=== PATIENT | female | born 1945 | race African-American/Black ===

== ENCOUNTER 2018-02-07 09:47 | Emergency (ER) | payer OTHER ==
[2018-02-07 10:00] VITALS: BP 173/93; PULSE 65; TEMP 98.4; BMI 34.3
[2018-02-07] MEDS ORDERED: IBUPROFEN 400 MG TABLET (FP) PO ONE ×2 (10:03→10:22)
--- NOTE | 2018-02-07 10:07 | PDOC ---
Attending Attestation - Resident Resident Name: Ant Bhakta - ED Attending Attestation I have performed the following: I have examined & evaluated the patient, The case was reviewed & discussed with the resident, I agree w/resident's findings & plan, Exceptions are as noted - HPI HPI: 72 yo F presents with R arm pain. She states that she was cleaning the house, mopping at the time, accidentally bumped into a doorknob. She is having pain to R upper arm, worse with movement of biceps. Denies weakness, numbness, neck pain , head injury. No LOC. - Physicial Exam PE: GENERAL: Awake, alert, and fully oriented, in no acute distress HEAD: No signs of trauma EYES: PERRLA, EOMI, sclera anicteric, conjunctiva clear ENT: Auricles normal inspection, hearing grossly normal, nares patent, oropharynx clear without exudates. Moist mucosa NECK: Normal ROM, supple, no lymphadenopathy, JVD, or masses LUNGS: Breath sounds equal, clear to auscultation bilaterally. No wheezes, and no crackles HEART: Regular rate and rhythm, normal S1 and S2, no murmurs, rubs or gallops ABDOMEN: Soft, nontender, normoactive bowel sounds. No guarding, no rebound. No masses EXTREMITIES: R upper arm with small ecchymosis to mid-arm, lateral surface. Normal range of motion, however, movement of biceps elicits pain. No asymmetry noted with the arms B/L. Remainder of extremities with normal range of motion, no edema. No clubbing or cyanosis. No cords, erythema, or tenderness NEUROLOGICAL: Cranial nerves II through XII grossly intact. Normal speech, normal gait. Motor and sensation intact. SKIN: Warm, Dry, normal turgor, no rashes or lesions noted. - Medical Decision Making Pt with small ecchymosis to R upper arm, no deformities. XR no acute findings. Stable for DC home.
--- NOTE | 2018-02-07 10:11 | PDOC ---
History of Present Illness <Mohini Arenas - Last Filed: 02/07/18 10:34> - General History Source: Patient Exam Limitations: No Limitations - History of Present Illness Initial Comments: 02/07/18 10:03 Patient is a 72F with a medical history of HTN here today complaining of pain to her right arm that happened yesterday after falling against a doorknob. She states that she was mopping when she slipped and hit her arm against the doorknob. Denies syncope, lightheadedness at the event. Denies chest pain, striking her head, losing consciousness. <Ant Bhakta - Last Filed: 02/07/18 10:56> - General Chief Complaint: Injury Stated Complaint: RIGHT UPPER ARM INJURY Time Seen by Provider: 02/07/18 09:54 Past History <Mohini Arenas - Last Filed: 02/07/18 10:34> - Past Medical History COPD: No DVT: Yes (30 YRS AGO) HTN: Yes - Suicide/Smoking/Psychosocial Hx Smoking History: Never smoked Hx Alcohol Use: Yes (RARE) Drug/Substance Use Hx: No Substance Use Type: None <Ant Bhakta - Last Filed: 02/07/18 10:56> - Past Medical History Allergies/Adverse Reactions: Allergies Allergy/AdvReac Type Severity Reaction Status Date / Time latex Allergy Unknown Verified 02/07/18 09:55 Home Medications: Ambulatory Orders Aspirin Coated [Ecotrin -] 81 mg PO DAILY 02/07/18 Hydrochlorothiazide [Hctz -] 25 mg PO DAILY 02/07/18 Review of Systems - Review of Systems Comments:: 02/07/18 10:07 GENERAL/CONSTITUTIONAL: No fever or chills. No weakness. HEAD, EYES, EARS, NOSE AND THROAT: No change in vision. No ear pain or discharge. No sore throat. CARDIOVASCULAR: No chest pain or shortness of breath RESPIRATORY: No cough, wheezing, or hemoptysis. GASTROINTESTINAL: No nausea, vomiting, diarrhea or constipation. GENITOURINARY: No dysuria, frequency, or change in urination. MUSCULOSKELETAL: +r arm pain. No neck or back pain. SKIN: No rash NEUROLOGIC: No headache, vertigo, loss of consciousness, or change in strength/ sensation. ENDOCRINE: No increased thirst. No abnormal weight change HEMATOLOGIC/LYMPHATIC: No anemia, easy bleeding, or history of blood clots. ALLERGIC/IMMUNOLOGIC: No hives or skin allergy. <Ant Bhakta - Last Filed: 02/07/18 10:56> *Physical Exam - Vital Signs Last Vital Signs Temp Pulse Resp BP Pulse Ox 98.4 F 65 16 173/93 97 02/07/18 09:54 02/07/18 09:54 02/07/18 09:54 02/07/18 09:54 02/07/18 09:54 <Mohini Arenas - Last Filed: 02/07/18 10:34> - Vital Signs Last Vital Signs Temp Pulse Resp BP Pulse Ox 98.4 F 65 16 173/93 97 02/07/18 09:54 02/07/18 09:54 02/07/18 09:54 02/07/18 09:54 02/07/18 09:54 - Physical Exam Comments: 02/07/18 10:07 GENERAL: Awake, alert, and fully oriented, in no acute distress HEAD: No signs of trauma, normocephalic, atraumatic EYES: PERRLA, EOMI, sclera anicteric, conjunctiva clear ENT: Auricles normal inspection, hearing grossly normal, nares patent, oropharynx clear without exudates. Moist mucosa NECK: Normal ROM, supple, no lymphadenopathy, JVD, or masses LUNGS: No distress, speaks full sentences, clear to auscultation bilaterally HEART: Regular rate and rhythm, normal S1 and S2, no murmurs, rubs or gallops, peripheral pulses normal and equal bilaterally. ABDOMEN: Soft, nontender, normoactive bowel sounds. No guarding, no rebound. No masses OTHER EXTREMITIES: Normal inspection, Normal range of motion, no edema. No clubbing or cyanosis. R ARM: 3X3cm bruise, neurovascularly intact distal to injury, 5/5 strength in arm, normal ROM. NEUROLOGICAL: Cranial nerves II through XII grossly intact. Normal speech, normal gait, no focal sensorimotor deficits SKIN: Warm, Dry, normal turgor, no rashes or lesions noted. <Ant Bhakta - Last Filed: 02/07/18 10:56> ED Treatment Course - Medications Given in the ED: ED Medications Discontinued Medications Generic Name Dose Route Start Last Admin Trade Name Freq PRN Reason Stop Dose Admin Ibuprofen 400 mg 02/07/18 10:03 02/07/18 10:23 Motrin - PO 02/07/18 10:04 400 mg ONCE ONE Administration <Mohini Arenas - Last Filed: 02/07/18 10:34> - RADIOLOGY Radiology Studies Ordered: Category Date Time Status HUMERUS-RIGHT [RAD] Stat Radiology 02/07/18 09:58 Ordered <Ant Bhakta - Last Filed: 02/07/18 10:56> Medical Decision Making - Medical Decision Making 02/07/18 10:08 Patient is 72F with history of HTN here today with arm pain. Vital signs normal and stable. Requesting x-ray, have low suspicion for fracture. X-ray ordered. 02/07/18 10:55 X-rays negative. Will discharge home. <Ant Bhakta - Last Filed: 02/07/18 10:56> *DC/Admit/Observation/Transfer - Discharge Dispostion Decision to Admit order: No <Mohini Arenas - Last Filed: 02/07/18 10:34> <Ant Bhakta - Last Filed: 02/07/18 10:56> Diagnosis at time of Disposition: Muscle strain Contusion Qualifiers: Encounter type: initial encounter Contusion area: upper arm Laterality: right Qualified Code(s): S40.021A - Contusion of right upper arm, initial encounter - Discharge Dispostion Disposition: HOME Condition at time of disposition: Stable - Patient Instructions Printed Discharge Instructions: DI for Contusion, DI for Muscle Strain
== END 2018-02-07 11:04 | disposition home or self-care (01) ==
LOC: FER 09:47
DX: S40.021A Contusion of right upper arm, initial encounter (principal); S46.911A Strain of unspecified muscle, fascia and tendon at shoulder and upper arm level, right arm, initial encounter; W22.03XA Walked into furniture, initial encounter; Y93.E5 Activity, floor mopping and cleaning; Y92.009 Unspecified place in unspecified non-institutional (private) residence as the place of occurrence of the external cause; I10 Essential (primary) hypertension
CPT/HCPCS: 73060-TC-RT-FY; 99281-25